=== PATIENT | female | born 1990 | race Caucasian/White ===

== ENCOUNTER 2018-03-27 19:16 | Emergency (ER) | payer OTHER ==
[~2018-03-27] VITALS: Ht 160 cm; Wt 54.4 kg
[2018-03-27 19:21] VITALS: Ht 160 cm; Wt 54.4 kg
[2018-03-27 22:10] VITALS: BP 111/71
== END 2018-03-27 22:10 | disposition home or self-care (01) ==
LOC: ED 19:16
DX: R11.2 Nausea with vomiting, unspecified (principal)
CPT/HCPCS: J1200; J2765; J7030